=== PATIENT | female | born 1970 | race Two or more races ===

== ENCOUNTER 2018-08-28 13:04 | Observation (INO) | payer MEDICAID ==
[~2018-08-28] VITALS: Ht 162.6 cm; Wt 85.1 kg
[2018-08-28] MEDS ORDERED: ASPIRIN 81 MG TABLET CHEW PO ONE (14:00)
[2018-08-28 14:18] LABS: BASOPHILS # (AUTO) 0.02 x10^3/uL (0-0.1); BASOPHILS % (AUTO) 0 % (0-1); EOSINOPHILS # (AUTO) 0.01 x10^3/uL (0-0.4); EOSINOPHILS % (AUTO) 0 % (1-7); LYMPHOCYTES # (AUTO) 2.12 x10^3/uL (1-3.4); LYMPHOCYTES % (AUTO) 27 % (22-44); MD NO; MEAN CORPUSCULAR HEMOGLOBIN 27.4 pg (27.0-34.8); MEAN CORPUSCULAR HGB CONC 33.2 g/dL (32.4-35.8); MEAN CORPUSCULAR VOLUME 82.6 fL (80-100); MEAN PLATELET VOLUME 8.1 fL (7.4-10.4); MONOCYTES # (AUTO) 0.57 x10^3/uL (0.2-0.8); MONOCYTES % (AUTO) 7 % (2-9); NEUTROPHILS # (AUTO) 5.13 x10^3/uL (1.8-6.8); NEUTROPHILS % (AUTO) 65 % (42-75); PLATELET COUNT 210 x10^3/uL (130-400); RED CELL DISTRIBUTION WIDTH 13.6 % (9.6-15.2)
[2018-08-28] MEDS ORDERED: OMEP-110 PO (14:27)
[2018-08-28] MEDS ORDERED: SUMA50TA4 PO (14:27)
[2018-08-28] MEDS ORDERED: HYDR200T72 PO (14:27)
[2018-08-28] MEDS ORDERED: ATEN25TA PO (14:27)
--- NOTE | 2018-08-28 14:27 | NUR ---
PT. IS A & O X 4 WITH C/O CHEST PRESSURE OVER A FEW WEEKS. PT. STATES IT WAS WORSE TODAY WHILE SHE WALKING AT WORK. 12 LEAD EKG WAS DONE. PT. HAS THE CP MONITOR IN PLACE. IV ACCESS WAS ESTABLISHED. PT. IS PINK, WARM AND DRY. LUNGS ARE CTA. MM ARE PINK AND MOIST WITH PULSES +2 THROUGOUT. SIDERAILS REMAIN UP X 2 WITH THE CALL LIGHT IN PLACE. LABS WERE OBTAINED. FAMILY REMAINS AT THE BEDSIDE.
--- NOTE | 2018-08-28 14:30 | NUR ---
PT. TOOK [facility] VICE PRESIDENT PHARMACY.
[2018-08-28 14:33] LABS: TROPONIN I < 0.015 ng/mL (0.000-0.045)
--- NOTE | 2018-08-28 14:55 | NUR ---
SBAR report received from RNBrittni. Pt remains on all monitors, NSR noted. Pt talking on phone and family at bedside.
[2018-08-28 15:24] LABS: ANION GAP 6 mmol/L (5-15); CALCIUM 8.7 mg/dL (8.5-10.1); CHLORIDE 112 mmol/L (98-107); CREATININE 0.91 mg/dL (0.55-1.02)
--- NOTE | 2018-08-28 16:15 | NUR ---
Dr. Spencer at bedside to discuss ED findings and POC.
[2018-08-28] MEDS ORDERED: SUMATRIPTAN 50 MG TABLET PO PRN (17:00)
[2018-08-28] MEDS ORDERED: hydrALAzine 20 MG/ML, 1ML IVPush PRN (17:00)
[2018-08-28] MEDS ORDERED: DOCUSATE 100 MG CAPSULE PO PRN (17:00)
[2018-08-28] MEDS ORDERED: ENOXAPARIN 40 MG/0.4 ML SQ SCH (17:00)
[2018-08-28] MEDS ORDERED: ONDANSETRON ODT 4 MG PO PRN (17:00)
[2018-08-28] MEDS ORDERED: ACETAMINOPHEN 325 MG TABLET PO PRN (17:00)
[2018-08-28] MEDS ORDERED: LABETALOL 5MG/ML, 20ML IVPush PRN (17:00)
[2018-08-28] MEDS ORDERED: LIDODERM 5% PATCH TD PRN (17:00)
[2018-08-28] MEDS ORDERED: ASA/APAP/ CAFFEINE TABLET PO PRN (17:00)
[2018-08-28] MEDS ORDERED: POLYETHYLENE GLYCOL 17 GM PACKET PO PRN (17:00)
[2018-08-28] MEDS ORDERED: ZOLPIDEM 5MG TABLET PO PRN (17:00)
[2018-08-28] MEDS ORDERED: BISACODYL 10 MG SUPP PR PRN (17:00)
[2018-08-28] MEDS ORDERED: ONDANSETRON 2MG/ML, 2ML IVPush PRN (17:00)
--- NOTE | 2018-08-28 17:15 | NUR ---
Telephone SBAR report given to RNMelanie. Pt made aware of new room assignment.
[2018-08-28 17:19] LABS: TROPONIN I < 0.015 ng/mL (0.000-0.045)
[2018-08-28 17:24] LABS: FREE T4 (FREE THYROXINE) 1.11 ng/dL (0.76-1.46); THYROID STIMULATING HORMONE 0.316 mIU/L (0.358-3.740)
[2018-08-28 17:56] VITALS: BP 137/86
[2018-08-28 20:34] VITALS: BP 122/78
[2018-08-28 23:49] LABS: TROPONIN I < 0.015 ng/mL (0.000-0.045)
[2018-08-29 02:29] VITALS: BP 131/79
[2018-08-29 05:27] LABS: ANION GAP 5 mmol/L (5-15); CALCIUM 8.8 mg/dL (8.5-10.1); CHLORIDE 110 mmol/L (98-107); CHOLESTEROL, TOTAL 142 mg/dL (140-239); CREATININE 0.83 mg/dL (0.55-1.02); TRIGLYCERIDES 99 mg/dL (50-200); VLDL CHOLESTEROL 20 mg/dL (0-25)
[2018-08-29 05:29] LABS: CHOL/HDL RATIO 2.4; HDL CHOL % 42 % (28-40); HDL CHOLESTEROL (DIRECT) 59 mg/dL (40-60); LDL CHOLESTEROL,CALCULATED 63 mg/dL (54-169); LDL/HDL RATIO 1.1 (0.5-3.0)
[2018-08-29 05:32] LABS: BASOPHILS # (AUTO) 0.02 x10^3/uL (0-0.1); BASOPHILS % (AUTO) 0 % (0-1); EOSINOPHILS # (AUTO) 0.06 x10^3/uL (0-0.4); EOSINOPHILS % (AUTO) 1 % (1-7); LYMPHOCYTES # (AUTO) 2.02 x10^3/uL (1-3.4); LYMPHOCYTES % (AUTO) 35 % (22-44); MD NO; MEAN CORPUSCULAR HEMOGLOBIN 27.6 pg (27.0-34.8); MEAN CORPUSCULAR HGB CONC 33.3 g/dL (32.4-35.8); MEAN PLATELET VOLUME 8.6 fL (7.4-10.4); MONOCYTES % (AUTO) 9 % (2-9); NEUTROPHILS # (AUTO) 3.18 x10^3/uL (1.8-6.8); NEUTROPHILS % (AUTO) 55 % (42-75); PLATELET COUNT 190 x10^3/uL (130-400); RED BLOOD COUNT 4.75 x10^6/uL (3.82-5.3); RED CELL DISTRIBUTION WIDTH 13.5 % (9.6-15.2)
[2018-08-29 07:25] VITALS: BP 123/79
[2018-08-29] MEDS ORDERED: PANTOPRAZOLE 40 MG IV IVPush SCH (07:30)
[2018-08-29] MEDS ORDERED: HYDROXYCHLOROQUINE 200 MG TABLET PO SCH (09:00)
[2018-08-29] MEDS ORDERED: ATENOLOL 25 MG TABLET PO SCH (09:00)
[2018-08-29] MEDS ORDERED: REGADENOSON 0.4 MG/5 ML SYRINGE ONE (09:23)
[2018-08-29] MEDS ORDERED: ACET325T14 PO (12:50)
[2018-08-29 12:54] VITALS: BP 113/76
== END 2018-08-29 16:16 | disposition home or self-care (01) ==
LOC: ED 16:25 → INTOOBSV 16:26 → EDIP 16:26 → 5SO 17:37 → ED 17:37 → 5SO 17:45 → DCLOUNGE 08-29 16:04
PROVIDERS: ADMIT Hospitalist; ATTEND Hospitalist
DX: R07.89 Other chest pain (principal); K21.9 Gastro-esophageal reflux disease without esophagitis; I10 Essential (primary) hypertension; G43.909 Migraine, unspecified, not intractable, without status migrainosus; E78.5 Hyperlipidemia, unspecified
CPT/HCPCS: 36415; 71045; 78452; 80048; 80061; 83690; 83880; 84439; 84443; 84484; 85025; 85379; 93005; 93017; 96374; 99285; A9502; C9113; C9898; G0378; J2785

== ENCOUNTER 2019-10-13 05:33 | Emergency (ER) | payer MEDICAID, OTHER ==
[~2019-10-13] VITALS: Ht 162.6 cm; Wt 87.0 kg
[~2019-10-13 05:33] MED LIST: ACET325T14 PO; ATEN25TA PO; HYDR200T72 PO; OMEP-110 PO; SUMA50TA4 PO
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
[2019-10-13] MEDS ORDERED: LIDOCAINE-MPF 1%, 5ML ONE (05:52)
[2019-10-13] MEDS ORDERED: FLUORESCEIN OPHTHALMIC 1 MG STRIP ONE (05:53)
[2019-10-13] MEDS ORDERED: LIDOCAINE-MPF 1%, 5ML INFIL ONE (06:00)
[2019-10-13] MEDS ORDERED: DIPH,PERTUSS(ACELL),TET VAC/PF 0.5 ML IM-VACC ONE ×2 (06:00→06:27)
[2019-10-13] MEDS ORDERED: MORPHINE SULFATE 4 MG/ML, 1ML ONE ×2 (06:27→09:29)
[2019-10-13] MEDS: MORPHINE SULFATE 4 MG/ML, 1ML IVPush PRN ×2 (06:29→09:35)
--- NOTE | 2019-10-13 06:37 | NUR ---
PT RETURNED FROM CT. NAD NOTED. MEDICATED PER EMAR FOR 05/07 PAIN. PLACED ON 2L BY NC FOR SUPPORT POST MEDICATION ADMINISTRATION. SUTURE SET UP COMPLETE
--- NOTE | 2019-10-13 07:01 | NUR ---
REPORT TO CARLA HDZ
[2019-10-13] MEDS ORDERED: NEOSPORIN OINT. PKT 1 PACKET ONE (07:21)
--- NOTE | 2019-10-13 08:37 | NUR ---
PT RESTING IN BED, AWAITING STEFANIE CONSULT. PT ABLE TO TRANSFER TO BEDSIDE COMMODE WITH MINIMAL ASSIST TO MANAGE VITALS WIRES.
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
[2019-10-13] MEDS ORDERED: PROPARACAINE OPHTH 0.5%, 15ML ONE (10:23)
--- NOTE | 2019-10-13 10:35 | NUR ---
DR. WATTS HAS BEEN IN TO ASSESS PT. PT FAMILY AT BEDSIDE.
[2019-10-13] MEDS ORDERED: LORazepam 1MG TABLET ONE (11:19)
[2019-10-13] MEDS ORDERED: LORazepam 1MG TABLET PO ONE (11:30)
[2019-10-13 11:39] VITALS: BP 132/86
--- NOTE | 2019-10-13 11:41 | NUR ---
Patient given discharge instructions and they have confirmed that they understand the instructions. Patient ambulatory with steady gait.
== END 2019-10-13 11:42 | disposition home or self-care (01) ==
LOC: ED 11:31
DX: S02.31XA Fracture of orbital floor, right side, initial encounter for closed fracture (principal); S02.831A Fracture of medial orbital wall, right side, initial encounter for closed fracture; S01.111A Laceration without foreign body of right eyelid and periocular area, initial encounter; I10 Essential (primary) hypertension; E03.9 Hypothyroidism, unspecified; G43.909 Migraine, unspecified, not intractable, without status migrainosus; E78.5 Hyperlipidemia, unspecified; M06.9 Rheumatoid arthritis, unspecified; V49.09XA Driver injured in collision with other motor vehicles in nontraffic accident, initial encounter; Y93.89 Activity, other specified; Y92.410 Unspecified street and highway as the place of occurrence of the external cause; Y99.8 Other external cause status
CPT/HCPCS: 12011; 70486; 71045; 72125; 73030; 73564; 90471; 90715; 96374; 96376; 99285; J2270